=== PATIENT | male | born 1960 | race Two or more races ===

== ENCOUNTER 2025-05-14 09:47 | Emergency (ER) | payer MEDICAID, OTHER ==
[~2025-05-14] VITALS: Ht 167.6 cm; Wt 81.6 kg
--- NOTE | 2025-05-14 11:12 | ED.PDOC ---
Musculoskeletal HPI Comments A 59 YEAR OLD MALE PRESENTS TO THE ED WITH COMPLAINT OF CHRONIC LEFT KNEE PAIN. PATIENT STATES HE HAS HAD CHRONIC LEFT KNEE PAIN FOR THE PAST 15 YEARS WITH WORSENING PAIN OVER THE LAST FEW DAYS. PATIENT IS REQUESTING AN INJECTION TO MANAGE HIS PAIN. PATIENT DENIES FEVER, CHILLS, SHORTNESS OF BREATH, CHEST PAIN, ABDOMINAL PAIN, NAUSEA, VOMITING, HEADACHE, OR OTHER COMPLAINTS. NO OTHER SYMPTOMS OR MODIFYING FACTORS AT THIS TIME. PATIENT IS ALERT, ORIENTED X 4, AND HAS STEADY GAIT. Chief Complaint: Lower Extremity Time Seen by MD: 10:16 Reviewed Notes: Nurses Notes, Medications, Allergies Allergies: Coded Allergies: NO KNOWN ALLERGIES (Unverified , 05/14/25) Home Meds Active Scripts Prednisone (Prednisone) 20 Mg Tab, 40 MG PO DAILY, #20 TAB Prov:JAY STUBBS 05/14/25 Information Source: Patient Mode of Arrival: Ambulatory Location: Left Extremity Location: Knee Timing: Months, Other (CHRONIC) Prehospital treatment: None Severity: Moderate Able to Move Extremity: Yes Bear Weight: Fully Pain: Moderate Mechanism: No Trauma, Spontaneous Circumstances: Spontaneous Onset of Symptoms: Spontaneous Symptoms: Pain DVT Risk Factors: NONE Last Tetanus: UTD, Unknown Associated signs and symptoms: Knee pain Past Medical History PAST MEDICAL HISTORY: Arthritis Past Medical History (Other): CHRONIC LEFT KNEE PAIN Surgical History (Other): LEFT KNEE SURGERY Family History Family History: Reviewed,noncontributory to illness Social History Smoker: Non-Smoker Alcohol: Denies ETOH Use Drugs: Denies Drug Use Lives In: Home Constitutional: denies: chills, diaphoresis, fatigue, fever, malaise, sweats, weakness, others EENTM: denies: blurred vision, double vision, ear bleeding, ear discharge, ear drainage, ear pain, ear ringing, eye pain, eye redness, hearing loss, mouth pain, mouth swelling, nasal discharge, nose bleeding, nose congestion, nose pain, photophobia, tearing, throat pain, throat swelling, voice changes, others Respiratory: denies: cough, hemoptysis, orthopnea, SOB at rest, shortness of breath, SOB with excertion, stridor, wheezing, others Cardiovascular: denies: chest pain, dizzy spells, diaphoresis, Dyspnea on exertion, edema, irregular heart beat, left arm pain, lightheadedness, palpitations, PND, syncope, others Gastrointestinal: denies: abdomen distended, abdominal pain, blood streaked bowels, constipated, diarrhea, dysphagia, difficulty swallowing, hematemesis, melena, nausea, poor appetite, poor fluid intake, rectal bleeding, rectal pain, vomiting, others Genitourinary: denies: burning, dysuria, flank pain, frequency, hematuria, incontinence, penile discharge, penile sore, pain, testicle pain, testicle swelling, urgency, others Neurological: denies: dizziness, fainting, headache, left sided numbness, left sided weakness, numbness, paresthesia, pre-existing deficit, right sided numbness, right sided weakness, seizure, speech problems, tingling, tremors, weakness, others Musculoskeletal: reports: joint pain, joint swelling, others (LEFT KNEE PAIN); denies: back pain, gout, muscle pain, muscle stiffness, neck pain Integumetry: denies: bruises, change in color, change in hair/nails, dryness, laceration, lesions, lumps, rash, wounds, others Allergic/Immunocompromised: denies: Difficulty Healing, Frequent Infections, Hives, Itching, others Hematologic/Lymphatic: denies: anemia, blood clots, easy bleeding, easy bruising, swollen glands, others Endocrine: denies: excessive hunger, excessive sweating, excessive thirst, excessive urination, flushing, intolerance to cold, intolerance to heat, unexplained weight gain, unexplained weight loss, others Psychiatric: denies: anxiety, bipolar disorder, depression, hopeless, panic disorder, schizophrenia, sleepless, suicidal, others All Other Systems: Reviewed and Negative Physical Exam General Appearance: No Apparent Distress, Normal HEENT: Normal ENT Inspection, PERRL/EOMI, Pharynx Normal, TMs Normal Neck: Full Range of Motion, Non-Tender, Normal, Normal Inspection Respiratory: Chest Non-Tender, Lungs Clear, No Accessory Muscle Use, No Respiratory Distress, Normal Breath Sounds Cardiovascular: No Edema, No JVD, No Murmur, No Gallop, Normal Peripheral Pulses, Regular Rate/Rhythm Breast Exam: Deferred Gastrointestinal: No Organomegaly, Non Tender, No Pulsatile Mass, Normal Bowel Sounds, Soft Genitalia: Deferred Pelvic: Deferred Rectal: Deferred Extremities: No calf tenderness, Normal capillary refill, Normal inspection, Normal range of motion, No pedal edema, Tender (ON LEFT KNEE, NO BONY TENDERNESS, SWELLING AND DEFORMITY. ) Musculoskeletal : Apperance: Normal Neurologic: Alert, print color operator II-XII nml as Tested, No Motor Deficits, Normal Affect, Normal Mood, No Sensory Deficits Cerebellar Function: Normal Reflexes: Normal Skin: Dry, Normal Color, Warm Peripheral Pulses: 2+ carotid (R), 2+ carotid (L), 2+ dorsalis pedis (R), 2+ dorsalis pedis (L) Lymphatic: No Adenopathy Was a procedure done? Was a procedure done?: No Differential Diagnosis EXT Differential Diagnosis: Sprain, DJD, Strain, Arthritis, Bursitis X-Ray, Labs, Meds, VS Vital Signs Date Time Temp Pulse Resp B/P (MAP) Pulse Ox O2 Delivery O2 Flow Rate FiO2 05/14/25 11:34 74 16 95 Room Air 05/14/25 11:34 97.6 74 16 128/86 (100) 95 97.6 05/14/25 09:49 98.2 94 18 127/82 97 98.2 Current Medications Medications (Trade) Dose Ordered Sig/Isamar Route Start Time Stop Time Status Last Admin Ketorolac Tromethamine (Toradol Injection) 60 mg ONCE ONCE IM 05/14/25 11:15 05/14/25 11:16 DC 05/14/25 11:29 CLINICAL INDICATION: PAIN, NO INJURY TECHNIQUE: 3 radiographic views of the left knee were obtained. Comparison: None FINDINGS/IMPRESSION: There is no evidence of acute fracture or dislocation. Severe tricompartmental knee joint osteoarthrosis. Postsurgical changes are visualized in the proximal tibia. The alignment is anatomical. There is no radiopaque foreign body. ATED BY: TYLER LAWS MD DICTATED DATE/TIME: 05/14/251128 SIGNED BY: TYLER LAWS MD SIGNED DATE/TIME: 05/14/251128 CC: X-Ray, Labs, Meds, VS Comment EXTERNAL MEDICAL RECORDS REVIEWED: [NONE] INDEPENDENT HISTORIANS: [NONE] SOCIAL DETERMINANTS OF HEALTH: [NONE] LABS ORDERED: NONE REVIEWED AND INTERPRETED RESULTS: NONE IMAGING ORDERED: XR KNEE LT TREATMENTS ORDERED: TORADOL 60 MG IM PROCEDURES PERFORMED: NONE CRITICAL CARE TIME: NONE I HAVE DISCUSSED THE PATIENT WITH THE ATTENDING PHYSICIAN AND HE AGREES WITH THE PATIENT'S PLAN OF CARE AND DISPOSITION. BASED ON HISTORY OF PRESENT ILLNESS, AND PHYSICAL EXAM, PATIENT WILL BE DISCHARGED HOME. DISCUSSED PLAN FOR DISCHARGE HOME WITH RX [PREDNISONE]. MEDICATION WARNINGS GIVEN. SHARED DECISION MAKING: PATIENT INSTRUCTED TO FOLLOW UP WITH PRIMARY CARE PROVIDER IN 1-2 DAYS FOR RE-EVALUATION OF SYMPTOMS. PATIENT VERBALIZES UNDERSTANDING TO RETURN TO ED FOR NEW OR WORSENING SYMPTOMS OR IF FOLLOW UP WITH PCP CANNOT BE OBTAINED. PATIENT FEELS COMFORTABLE GOING HOME AT THIS TIME. ALL QUESTIONS ADDRESSED AT TIME OF DISCHARGE. Images Reviewed?: Images reviewed and evaluated by me Time of 1ST Reevaluation: 12:00 Reevaluation 1ST: Improved Patient Education/Counseling: Diagnosis, Treatment, Need For Follow Up Family Education/Counseling: Diagnosis, Treatment, Need For Follow Up Medical Screening: No EMC Exist At This Time Departure 1 Departure Time of Disposition: 12:00 Impression: Primary Impression: Degenerative joint disease of left knee Qualified Codes: M17.12 - Unilateral primary osteoarthritis, left knee Disposition: 01 HOME / SELF CARE / HOMELESS Condition: Stable Additional Instructions: FOLLOW-UP WITH PCP IN 1 TO 2 DAYS. TAKE MEDICATIONS PRESCRIBED. RETURN TO ED FOR ANY NEW OR WORSENING SYMPTOMS. e-Prescriptions Prednisone (Prednisone) 20 Mg Tab 40 MG PO DAILY, #20 TAB Prov: JAY STUBBS 05/14/25 Discharged With: Self Critical Care Note Critical Care Time?: No Stability Stability form required: No I personally scribed for JAY STUBBS ([email or web address]) on 05/14/25 at 11:12. Electronically submitted by [employer] ([email or web address]). I personally scribed for JAY STUBBS ([email or web address]) on 05/14/25 at 11:32. Electronically submitted by [employer] ([email or web address]). I personally scribed for JAY STUBBS ([email or web address]) on 05/14/25 at 11:36. Electronically submitted by [employer] ([email or web address]). JAY STUBBS May 14, 2025 11:12
[2025-05-14] MEDS: KETOROLAC TROMETH 60MG/2ML VIAL IM ONE (11:29)
--- NOTE | 2025-05-14 11:32 | DVH ---
CLINICAL INDICATION: PAIN, NO INJURY TECHNIQUE: 3 radiographic views of the left knee were obtained. Comparison: None FINDINGS/IMPRESSION: There is no evidence of acute fracture or dislocation. Severe tricompartmental knee joint osteoarthrosis. Postsurgical changes are visualized in the proxima l tibia. The alignment is anatomical. There is no radiopaque foreign body.
[2025-05-14 11:34] VITALS: BP 128/86; PULSE 74; RESP 16; TEMP 97.6; O2SAT 95
[2025-05-14] MEDS ORDERED: PRED20TA2 PO (11:37)
== END 2025-05-14 11:49 | disposition home or self-care (01) ==
LOC: ER 09:47
DX: M17.12 Unilateral primary osteoarthritis, left knee (principal); Z79.899 Other long term (current) drug therapy
CPT/HCPCS: 73562; 96372; 99283; J1885

== ENCOUNTER 2025-08-10 19:57 | Inpatient (IN) | payer MEDICARE, MEDICAID ==
[~2025-08-10] VITALS: Ht 167.6 cm; Wt 91.0 kg
[~2025-08-10 19:57] MED LIST: PRED20TA2 PO
--- NOTE | 2025-08-10 20:44 | ED.PDOC ---
History of Present Illness HPI Comments 64-year-old, obese male presents with chief complaint of shortness of breath, productive cough, and sharp, midsternal chest pain. Significant history for hypertension, hepatitis series-resolved, and tobacco cigarette and marijuana use. Patient endorses four day history of symptoms, with no prior history of in the past. Pain radiates to his left arm. Breathing difficulties exacerbated whenever sleeping. He denies any fever, chills, leg swelling, or further acute symptoms. No endorsement of any recent sick contacts, travel, injuries, substance use, or further pertinent events or history. Chief Complaint: Shortness of Breath Time Seen by MD: 20:20 Reviewed Notes: Nurses Notes, Medications, Allergies Allergies: Coded Allergies: NO KNOWN ALLERGIES (Unverified , 05/14/25) Home Meds Active Scripts Prednisone (Prednisone) 20 Mg Tab, 40 MG PO DAILY, #20 TAB Prov:JAY STUBBS 05/14/25 Information Source: Patient Mode of Arrival: Ambulatory Past Medical History PAST MEDICAL HISTORY: Arthritis, HTN, Liver ([id number]) Surgical History (Other): Left knee surgery Family History Family History: No family hx of Cancer, No family hx of Heart sadie, No family hx of HTN, No family hx ofKidney sadie, No family hx of Liver sadie, No family hx of Lung sadie, No family hx of Stroke, Family hx of DM Social History Smoker: Cigarettes Alcohol: Occasionally Drugs: Marijuana Lives In: Home Constitutional: denies: chills, diaphoresis, fatigue, fever, malaise, sweats, weakness, others EENTM: denies: blurred vision, double vision, ear bleeding, ear discharge, ear drainage, ear pain, ear ringing, eye pain, eye redness, hearing loss, mouth pain, mouth swelling, nasal discharge, nose bleeding, nose congestion, nose pain, photophobia, tearing, throat pain, throat swelling, voice changes, others Respiratory: reports: cough, orthopnea, shortness of breath; denies: hemo ptysis, SOB at rest, SOB with excertion, stridor, wheezing, others Cardiovascular: reports: chest pain, left arm pain; denies: dizzy spells, diaphoresis, Dyspnea on exertion, edema, irregular heart beat, lightheadedness, palpitations, PND, syncope, others Gastrointestinal: denies: abdomen distended, abdominal pain, blood streaked bowels, constipated, diarrhea, dysphagia, difficulty swallowing, hematemesis, melena, nausea, poor appetite, poor fluid intake, rectal bleeding, rectal pain, vomiting, others Genitourinary: denies: burning, dysuria, flank pain, frequency, hematuria, incontinence, penile discharge, penile sore, pain, testicle pain, testicle swe lling, urgency, others Neurological: denies: dizziness, fainting, headache, left sided numbness, left sided weakness, numbness, paresthesia, pre-existing deficit, right sided numbness, right sided weakness, seizure, speech problems, tingling, tremors, weakness, others Musculoskeletal: denies: back pain, gout, joint pain, joint swelling, muscle pain, muscle stiffness, neck pain, others Integumetry: denies: bruises, change in color, change in hair/nails, dryness, laceration, lesions, lumps, rash, wounds, others Allergic/Immunocompromised: denies: Difficulty Healing, Frequent Infections, Hives, Itching, others Hematologic/Lymphatic: denies: anemia, blood clots, easy bleeding, easy bruising, swollen glands, others Endocrine: denies: excessive hunger, excessive sweating, excessive thirst, excessive urination, flushing, intolerance to cold, intolerance to heat, unexplained weight gain, unexplained weight loss, others Psychiatric: denies: anxiety, bipolar disorder, depression, hopeless, panic disorder, schizophrenia, sleepless, suicidal, others All Other Systems: Reviewed and Negative Physical Exam General Appearance: Moderate Distress HEENT: Normal ENT Inspection, Pharynx Normal, TMs Normal Neck: Full Range of Motion, Non-Tender, Normal, Normal Inspection Respiratory: Chest Non-Tender, Decreased Breath Sounds, No Accessory Muscle Use, Rales, Respiratory Distress Cardiovascular: No Edema, No JVD, No Murmur, No Gallop, Normal Peripheral Pulses, Regular Rate/Rhythm Breast Exam: Deferred Gastrointestinal: No Organomegaly, Non Tender, No Pulsatile Mass, Normal Bowel Sounds, Soft Genitalia: Deferred Pelvic: Deferred Rectal: Deferred Extremities: No calf tenderness, Normal capillary refill, Normal inspection, Normal range of motion, Non-tender, No pedal edema Musculoskeletal : Apperance: Normal Neurologic: Alert, 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 Was a procedure done?: No EKG EKG : Pulse Rate (adult): 88 [place]: RAD Cardiac Rhythm: NSR Block: None Hypertrophy: None ST: Normal Differential Dx Considerations may include: [place], PE, ACS, CAD, URI, PNA, viral, angina, anxiety, among others X-Ray, Labs, Meds, VS Vital Signs Date Time Temp Pulse Resp B/P (MAP) Pulse Ox O2 Delivery O2 Flow Rate FiO2 08/10/25 22:09 18 96 Room Air* 0 21 08/10/25 22:08 94 18 125/80 (95) 96 08/10/25 22:07 125/80 08/10/25 20:44 88 08/10/25 20:21 88 08/10/25 20:01 98.6 91 20 104/67 93 98.6 Lab Test 08/10/25 21:37 08/10/25 21:30 08/10/25 20:40 Range/Units Troponin I High Sensitivity Pending < 3 L </=54 ng/L Urine Color Pending Urine Clarity Pending Urine pH Pending Urine Specific [place] Pending Urine Protein Pending Urine Ketones Pending Urine Blood Pending Urine Nitrite Pending Urine Bilirubin Pending Urine Urobilinogen Pending Urine Leukocyte Esterase Pending Urine RBC Pending Urine Microscopic WBC Pending Urine Squamous Epithelial Cells Pending Urine Bacteria Pending Urine Glucose Pending Urine Opiates Screen Pending Urine Fentanyl Screen Pending Urine Barbiturates Screen Pending Urine Phencyclidine Screen Pending Urine Amphetamines Screen Pending Urine Benzodiazepines Screen Pending Urine Cocaine Screen Pending Urine Cannabinoids Screen Pending White Blood Count 7.3 4.4-10.8 10^3/uL Red Blood Count 4.99 4.5-5.90 10^6/uL Hemoglobin 16.4 13.5-17.5 g/dL Hematocrit 46.4 41.0-53.0 % Mean Corpuscular Volume 93.0 80.0-100.0 fL Mean Corpuscular Hemoglobin 33.0 H 28.0-32.0 pg Mean Corpuscular Hemoglobin Concent 35.4 32.0-36.0 g/dL Red Cell Distribution Width 13.3 11.8-14.3 % Platelet Count 197 140-450 10^3/uL Mean Platelet Volume 9.1 6.9-10.8 fL Neutrophils (%) (Auto) 51.5 37.0-80.0 % Lymphocytes (%) (Auto) 32.9 10.0-50.0 % Monocytes (%) (Auto) 11.7 0.0-12.0 % Eosinophils (%) (Auto) 2.9 0.0-7.0 % Basophils (%) (Auto) 1.0 0.0-2.0 % Neutrophils # (Auto) 3.8 1.6-8.6 10 ^3/uL Lymphocytes # (Auto) 2.4 0.4-5.4 10 ^3/uL Monocytes # (Auto) 0.9 0-1.3 10 ^3/uL Eosinophils # (Auto) 0.2 0-0.8 10 ^3/uL Basophils # (Auto) 0.1 0-0.2 10 ^3/uL Nucleated Red Blood Cells 0.1 % D-Dimer, Quantitative 0.23 0.0-0.49 mg/L FEU Sodium Level 142 136-145 mmol/L Potassium Level 4.0 3.5-5.1 mmol/L Chloride Level 105 98-107 mmol/L Carbon Dioxide Level 25 20-31 mmol/L Anion Gap 12 5-15 Blood Urea Nitrogen 16 9-23 mg/dL Creatinine 1.23 0.700-1.30 mg/dL Glomerular Filtration Rate Calc 65 >90 mL/min BUN/Creatinine Ratio 13.0 10.0-20.0 Serum Glucose 92 74-106 mg/dL Calcium Level 9.3 8.7-10.4 mg/dL B-Type Natriuretic Peptide 31.25 0-100 pg/mL Current Medications Medications (Trade) Dose Ordered Sig/Isamar Route Start Time Stop Time Status Last Admin Furosemide (Lasix Injection) 40 mg ONCE ONCE IV 08/10/25 21:45 08/10/25 21:46 DC 08/10/25 22:07 PROCEDURE(s): CXR2 - CHEST TWO VIEWS ROUTINE FINDINGS: Cardiac silhouette is within normal limits. Mild prominence of the pulmonary vasculature. No dense focal airspace disease. No significant pleural effusions or pneumothorax. Bones and soft tissues demonstrate no significant abnormality IMPRESSION: Suspect mild pulmonary venous congestion. The CBC is within normal limits. The patient was given Lasix 40 mg IV push The BNP is 31.25 The D-dimer is 0.23 which is within normal limits The chemistry panel is within normal limits At this time the urine tox in the urine test is pending The patient is being admitted at this time Images Reviewed?: Images reviewed and evaluated by me Time of 1ST Reevaluation: 20:50 Reevaluation 1ST: Unchanged Patient Education/Counseling: Diagnosis, Treatment, Prognosis Family Education/Counseling: No Family Present SEPSIS Sepsis Screen Date sepsis recognized/suspect: Aug 10, 2025 Time Sepsis recognized/suspect: 2004 Recent Procedure: No On Antibiotic Therapy: No Respiratory Rate >20: No Heart Rate >90: No Temp<36 C (96.8 F) or >38.3 C: No SBP <90 or MAP <65 mmHG: No New Acute Mental Status Change: No Is the patient on CPAP, BIPAP,: No Physician Orders Electrocardigram (08/10/25 20:07) Urinalysis (08/10/25 20:27) Heplock Iv (08/10/25 20:27) Pulse Oximetry (08/10/25 20:27) Community Outreach Director (08/10/25 20:27) Blood Pressure (08/10/25 20:27) Chest Two Views Routine (08/10/25 20:27) Covid19 Antigen Sirisha (08/10/25 ) Drug Screen (08/10/25 20:27) Troponin-I Hs (08/10/25 21:27) Troponin-I Hs (08/10/25 23:27) Vital Signs Date Time Temp Pulse Resp B/P (MAP) Pulse Ox O2 Delivery O2 Flow Rate FiO2 08/10/25 22:09 18 96 Room Air* 0 21 08/10/25 22:08 94 18 125/80 (95) 96 08/10/25 22:07 125/80 08/10/25 20:44 88 08/10/25 20:21 88 08/10/25 20:01 98.6 91 20 104/67 93 98.6 Laboratory Tests Test 08/10/25 20:40 White Blood Count 7.3 10^3/uL (4.4-10.8) Medications Medications Dose Ordered Sig/Isamar Route Start Time Stop Time Status Last Admin Dose Admin Furosemide 40 mg ONCE ONCE IV 08/10/25 21:45 08/10/25 21:46 DC 08/10/25 22:07 Departure 1 Departure Time of Disposition: 21:35 Impression: Primary Impression: Pulmonary vascular congestion Additional Impression: Acute on chronic diastolic heart failure Disposition: ADMITTED INPATIENT Admit to: Tele Condition: Fair Critical Care Note Critical Care Time?: Yes (45 min-critical care time only) Stability Stability form required: Yes Unstable for transfer: Telemetry monitoring (Telemetry monitoring required), ED Physician Assesment (Clinical assesment) Heart Score Heart Score: Heart Score Response (Comments) Value History Moderate Suspicious 1 EKG Normal 0 Age >65 2 Risk Factors >3 or Hx ASHD 2 Troponin Normal limit 0 Total 5 I personally scribed for WHITNEY MATHEW MD ([email or web address]) on 08/10/25 at 20:44. Electronically submitted by Jono Kirby ([email or web address]). I personally scribed for WHITNEY MATHEW MD ([email or web address]) on 08/10/25 at 22:02. Electronically submitted by Jono Kirby ([email or web address]). WHITNEY MATHEW MD Aug 10, 2025 20:44
[2025-08-10 21:24] LABS: Hematocrit 46.4 % (41.0-53.0); Hemoglobin 16.4 g/dL (13.5-17.5); Mean Corpuscular Hemoglobin 33.0 pg (28.0-32.0); Mean Corpuscular Volume 93.0 fL (80.0-100.0); Nucleated Red Blood Cells % 0.1 %
--- NOTE | 2025-08-10 21:27 | DVH ---
CHEST RADIOGRAPH Indication: sob Technique: Frontal and lateral view of the chest was obtained Comparison: None FINDINGS: Cardiac silhouette is within normal limits. Mild prominence of the pulmonary vasculature. No dense focal airspace disease. No significant pleural effusions or pneumothorax. Bones and soft tissues demonstrate no significant abnormality IMPRESSION: Suspect mild pulmonary venous congestion.
[2025-08-10 21:28] LABS: Chloride 105 mmol/L (98-107); Potassium 4.0 mmol/L (3.5-5.1); Sodium 142 mmol/L (136-145)
[2025-08-10 21:29] LABS: Anion Gap 12 (5-15); Calcium 9.3 mg/dL (8.7-10.4); Carbon Dioxide 25 mmol/L (20-31)
[2025-08-10 21:34] LABS: BUN/Creatinine Ratio 13.0 (10.0-20.0); Blood Urea Nitrogen 16 mg/dL (9-23); Glucose 92 mg/dL (74-106)
[2025-08-10] MEDS: FUROSEMIDE 40 MG/4 ML VIAL IV ONE (22:07)
[2025-08-10 22:09] LABS: Urine Protein, UAD Negative (Negative)
[2025-08-10 22:21] LABS: Cannabinoid Screen, Urine Pos (NEGATIVE)
[2025-08-10 22:34] LABS: Amphetamine Screen, Urine Neg (NEGATIVE); Barbiturate Scree,Urine Neg (NEGATIVE); Benzodiazephine Screen, Urine Neg (NEGATIVE); Cocaine Screen, Urine Neg (NEGATIVE); Opiate Scree,Urine Neg (NEGATIVE); Phencyclidine Screen, Urine Neg (NEGATIVE)
--- NOTE | 2025-08-10 22:57 | ECG ---
[facility] Test Date: 2025-08-10 Test Time: 20:21:03 Pat Name: JONG CARTAGENA Department: ED Room: 0216 Gender: M Parks Recreation Coordinator: SHAZIA : 1960 Requested By: WHITNEY MATHEW Order Number: [id number] Reading MD: Kalyan Patel Measurements Intervals [place] Rate: 88 P: 88 VT: 159 QRS: 102 QRSD: 98 T: 67 QT: 367 QTc: 444 Interpretive Statements Sinus rhythm Right axis deviation Low voltage, precordial leads Electronically Signed On 08-12-2025 17:46:35 PST by Kalyan Patel Please click the below link to view image of tracing.
[2025-08-11] VITALS (12 sets, daily range): BP systolic 103–133; BP diastolic 64–83; PULSE 71–92; RESP 14–20; TEMP 97.5–98.4; O2SAT 91–97
--- NOTE | 2025-08-11 00:43 | DVHHP2 ---
History of Present Illness Reason for Visit: Shortness for breath History of Present Illness 64-year-old male presents for evaluation of shortness for breath. Patient endorses a three day history of worsening shortness for breath with associated cough with yellow phlegm. Reports also intermittent chills. Denies chest pain or lower extremity swelling. No other acute complaints reported. Past Medical History Hypertension, arthritis Past Surgical History Left knee surgery Family History Noncontributory Smoke: <1 pack per day ALCOHOL: occassional Drugs: Marijuana Lives: with Family Review of Systems Review of Systems Review of systems are currently negative otherwise addressed in HPI. Allergies: Coded Allergies: NO KNOWN ALLERGIES (Unverified , 05/14/25) Exam Vital Signs Vital Signs Date Time Temp Pulse Resp B/P (MAP) Pulse Ox O2 Delivery O2 Flow Rate FiO2 08/10/25 22:09 18 96 Room Air* 0 21 08/10/25 22:08 94 125/80 (95) 08/10/25 20:01 98.6 98.6 Exam Gen: 64-year-old male in mild distress Skin: Warm, dry, normal color and texture, no rash. HEENT: Normocephalic atraumatic, mucous membranes moist and pink. Neck: Cervical and supraclavicular nodes normal without enlargement, trachea is midline, thyroid gland is normal without masses. Pulmonary: Diminished breath sounds bilaterally Cardiac: Regular rate and rhythm. No murmur Abdomen: Soft, nontender, nondistended, bowel sounds present all 4 quadrants, no guarding, no rigidity, no organomegaly. Extremities: No cyanosis, clubbing, no edema Neuro: Cranial nerves II through XII grossly intact, normal affect and speech, no focal motor deficits. Labs/Xrays ORDERING PHYSICIAN: WHITNEY MATHEW MD PROCEDURE(s): CXR2 - CHEST TWO VIEWS ROUTINE REASON: sob ORDER NUMBER(s): [id number], ACCESSION NUMBER(s): [id number] CHEST RADIOGRAPH Indication: sob Technique: Frontal and lateral view of the chest was obtained Comparison: None FINDINGS: Cardiac silhouette is within normal limits. Mild prominence of the pulmonary vasculature. No dense focal airspace disease. No significant pleural effusions or pneumothorax. Bones and soft tissues demonstrate no significant abnormality IMPRESSION: Suspect mild pulmonary venous congestion. Labs Test 08/11/25 00:00 08/10/25 21:37 08/10/25 21:30 08/10/25 20:40 Range/Units Troponin I High Sensitivity < 3 L </=54 ng/L Urine Color Light-yellow Yellow Urine Clarity Clear Clear Urine pH 5.5 5.0-9.0 Urine Specific [place] 1.011 1.001-1.035 Urine Protein Negative Negative Urine Ketones Negative Negative Urine Blood Negative Negative /uL Urine Nitrite Negative Negative Urine Bilirubin Negative Negative Urine Urobilinogen Normal Negative mg/dL Urine Leukocyte Esterase Negative Negative /uL Urine RBC None seen 0 - 3 /hpf Urine Microscopic WBC < 1 0-3 /HPF Urine Squamous Epithelial Cells None seen <5 /hpf Urine Bacteria None seen None Seen /hpf Urine Glucose Normal Normal mg/dL Urine Opiates Screen Neg NEGATIVE Urine Fentanyl Screen Neg NEGATIVE Urine Barbiturates Screen Neg NEGATIVE Urine Phencyclidine Screen Neg NEGATIVE Urine Amphetamines Screen Neg NEGATIVE Urine Benzodiazepines Screen Neg NEGATIVE Urine Cocaine Screen Neg NEGATIVE Urine Cannabinoids Screen Pos NEGATIVE White Blood Count 7.3 4.4-10.8 10^3/uL Red Blood Count 4.99 4.5-5.90 10^6/uL Hemoglobin 16.4 13.5-17.5 g/dL Hematocrit 46.4 41.0-53.0 % Mean Corpuscular Volume 93.0 80.0-100.0 fL Mean Corpuscular Hemoglobin 33.0 H 28.0-32.0 pg Mean Corpuscular Hemoglobin Concent 35.4 32.0-36.0 g/dL Red Cell Distribution Width 13.3 11.8-14.3 % Platelet Count 197 140-450 10^3/uL Mean Platelet Volume 9.1 6.9-10.8 fL Neutrophils (%) (Auto) 51.5 37.0-80.0 % Lymphocytes (%) (Auto) 32.9 10.0-50.0 % Monocytes (%) (Auto) 11.7 0.0-12.0 % Eosinophils (%) (Auto) 2.9 0.0-7.0 % Basophils (%) (Auto) 1.0 0.0-2.0 % Neutrophils # (Auto) 3.8 1.6-8.6 10 ^3/uL Lymphocytes # (Auto) 2.4 0.4-5.4 10 ^3/uL Monocytes # (Auto) 0.9 0-1.3 10 ^3/uL Eosinophils # (Auto) 0.2 0-0.8 10 ^3/uL Basophils # (Auto) 0.1 0-0.2 10 ^3/uL Nucleated Red Blood Cells 0.1 % D-Dimer, Quantitative 0.23 0.0-0.49 mg/L FEU Sodium Level 142 136-145 mmol/L Potassium Level 4.0 3.5-5.1 mmol/L Chloride Level 105 98-107 mmol/L Carbon Dioxide Level 25 20-31 mmol/L Anion Gap 12 5-15 Blood Urea Nitrogen 16 9-23 mg/dL Creatinine 1.23 0.700-1.30 mg/dL Glomerular Filtration Rate Calc 65 >90 mL/min BUN/Creatinine Ratio 13.0 10.0-20.0 Serum Glucose 92 74-106 mg/dL Calcium Level 9.3 8.7-10.4 mg/dL B-Type Natriuretic Peptide 31.25 0-100 pg/mL SEPSIS Sepsis Screen Date sepsis recognized/suspect: Aug 10, 2025 Time Sepsis recognized/suspect: 2004 Recent Procedure: No On Antibiotic Therapy: No Respiratory Rate >20: No Heart Rate >90: No Temp<36 C (96.8 F) or >38.3 C: No SBP <90 or MAP <65 mmHG: No New Acute Mental Status Change: No Is the patient on CPAP, BIPAP,: No Physician Orders Heplock Iv (08/10/25 20:27) Pulse Oximetry (08/10/25 20:27) Staff Engineer (08/10/25 20:27) Blood Pressure (08/10/25 20:27) Chest Two Views Routine (08/10/25 20:27) Covid19 Antigen Sirisha (08/10/25 ) Admit (08/10/25 23:52) Vital Signs Date Time Temp Pulse Resp B/P (MAP) Pulse Ox O2 Delivery O2 Flow Rate FiO2 08/10/25 22:09 18 96 Room Air* 0 21 08/10/25 22:08 94 18 125/80 (95) 96 08/10/25 22:07 125/80 08/10/25 20:44 88 08/10/25 20:21 88 08/10/25 20:01 98.6 91 20 104/67 93 98.6 Laboratory Tests Test 08/10/25 20:40 White Blood Count 7.3 10^3/uL (4.4-10.8) Medications Medications Dose Ordered Sig/Isamar Route Start Time Stop Time Status Last Admin Dose Admin Furosemide 40 mg ONCE ONCE IV 08/10/25 21:45 08/10/25 21:46 DC 08/10/25 22:07 40 MG Assessment/Plan Assessment/Plan Assessment Acute pneumonitis Acute respiratory distress Plan Admit the patient to [facility] to the hospitalist [facility] Azithromycin Continue treatment per orders. Plan discussed with: Patient My Orders Orders - MANISH ORO Procedure Category Date Status Time Admit ADMIT 08/10/25 Transmitted 23:52 Date of Service: Aug 10, 2025 Billing Provider: MANISH ORO Common Visit Codes: [id number] INP/OBS CARE (MOD) MANISH ORO Aug 11, 2025 00:43
[2025-08-11] MEDS ORDERED: ALBUTEROL SULF 2.5 MG/0.5ML(0.5%) NEB SOLN NEB PRN (00:45)
[2025-08-11] MEDS ORDERED: ACETAMINOPHEN 325 MG TAB PO PRN (00:45)
[2025-08-11] MEDS ORDERED: ONDANSETRON HCL 4 MG/2 ML VIAL IV PRN (00:45)
[2025-08-11 00:49] LABS: COVID19 ANTIGEN SOFIA FIA NEGATIVE (NEGATIVE)
[2025-08-11] MEDS: AZITHROMYCIN 500MG/250ML 250 ML IV ONE (02:17)
[2025-08-11] MEDS: guaiFENesin-DM 100/10mg/5ml SYR PO PRN (02:17)
--- NOTE | 2025-08-11 15:15 | DVHPN2 ---
Reviewed: Care Plan, H&P, Labs, Medications, Previous Orders, Radiology Changes from previous H/P or p: No Changes Objective Vitals Vital Signs Date Time Temp Pulse Resp B/P (MAP) Pulse Ox O2 Delivery O2 Flow Rate FiO2 08/11/25 12:34 97.5 71 19 124/82 (96) 95 97.5 08/11/25 07:28 Room Air* 0 21 Intake/Output Intake and Output 08/11/25 07:00 Intake Total 430 ml Balance 430 ml Intake Oral 180 ml IV Total 250 ml # Voids 2 Medications Current Medications Medications Dose Ordered Sig/Isamar Route Start Time Stop Time Status Last Admin Dose Admin Azithromycin 250 ml @ 125 mls/hr DAILY IV 08/12/25 10:00 Albuterol 2.5 mg Q6HPRN PRN NEB 08/11/25 00:45 Guaifenesin/ Dextromethorphan 10 ml Q4HP PRN PO 08/11/25 00:45 08/11/25 11:53 10 ML Temazepam 15 mg QHSP PRN PO 08/11/25 00:45 Ondansetron HCl 4 mg Q4HP PRN IV 08/11/25 00:45 Acetaminophen 650 mg Q6HP PRN PO 08/11/25 00:45 Laboratory Results Laboratory Tests 08/10/25 20:40 Chemistry Test 08/10/25 20:40 Calcium Level 9.3 mg/dL (8.7-10.4) Coagulation Test 08/10/25 20:40 D-Dimer, Quantitative 0.23 mg/L FEU (0.0-0.49) Cardiac Markers Test 08/10/25 20:40 B-Type Natriuretic Peptide 31.25 pg/mL (0-100) Urinalysis Test 08/10/25 21:30 Urine Color Light-yellow (Yellow) Urine Clarity Clear (Clear) Urine pH 5.5 (5.0-9.0) Urine Specific [place] 1.011 (1.001-1.035) Urine Protein Negative (Negative) Urine Ketones Negative (Negative) Urine Blood Negative /uL (Negative) Urine Nitrite Negative (Negative) Urine Bilirubin Negative (Negative) Urine Urobilinogen Normal mg/dL (Negative) Urine Leukocyte Esterase Negative /uL (Negative) Urine RBC None seen /hpf (0 - 3) Urine Microscopic WBC < 1 /HPF (0-3) Urine Squamous Epithelial Cells None seen /hpf (<5) Urine Bacteria None seen /hpf (None Seen) Urine Glucose Normal mg/dL (Normal) Labs and/or images reviewed: Labs reviewed by me, Image(s) reviewed by me Assessment/Plan Assessment/Plan Acute hypoxic respiratory failure: Oxygen by nasal cannula Acute community-acquired pneumonia Gram-positive versus Gram-negative: Rocephin azithromycin Hypertension Arthritis Chronic current smoking: Nicotine patch and counseled 20 minutes Patient is DNR (patient says in case). No reason to be on DNR Plan discussed with: Patient My Orders Orders - HAYDEN CHEUNG MD Procedure Category Date Status Time Ceftriaxone Ivpb PHA 08/12/25 Transmitted Rocephin 09:00 Ceftriaxone Ivpb PHA 08/11/25 Transmitted Rocephin 15:15 Date of Service: Aug 11, 2025 Billing Provider: HAYDEN CHEUNG MD Common Visit Codes: [id number] INP/OBS CARE(HIGH) Secondary Visit Codes: [id number] CHNG SMOKING >10MIN HAYDEN CHEUNG MD Aug 11, 2025 15:15
[2025-08-11] MEDS: NICOTINE 21MG/24 HR TOPICAL PATCH TD ONE (17:12)
--- NOTE | 2025-08-11 17:28 | MEDREC ---
[facility] Intervention Section I [facility] Intervention: IV to PO conversion (Suggest changing Azithromycin IV to PO as pt is afebrile and tolerating PO meds and enteral meals) ELIANA BLANCO PHARMACIST Aug 11, 2025 17:28
[2025-08-11] MEDS: TEMAZEPAM 15 MG CAP PO PRN (21:07)
[2025-08-12] VITALS (7 sets, daily range): BP systolic 113–138; BP diastolic 76–86; PULSE 72–86; RESP 14–20; TEMP 36.5; O2SAT 93–98
--- NOTE | 2025-08-12 08:29 | DVHPN2 ---
Reviewed: Care Plan, H&P, Labs, Medications, Previous Orders, Radiology Changes from previous H/P or p: No Changes Objective Vitals Vital Signs Date Time Temp Pulse Resp B/P (MAP) Pulse Ox O2 Delivery O2 Flow Rate FiO2 08/12/25 05:00 98.0 78 16 113/76 (88) 93 98.0 08/11/25 20:00 Room Air* 0 21 Intake/Output Intake and Output 08/12/25 07:00 Intake Total 1760 ml Balance 1760 ml Intake Oral 1760 ml # Voids 5 # Bowel Movements 1 Medications Current Medications Medications Dose Ordered Sig/Isamar Route Start Time Stop Time Status Last Admin Dose Admin Azithromycin 250 ml @ 125 mls/hr DAILY IV 08/12/25 10:00 Albuterol 2.5 mg Q6HPRN PRN NEB 08/11/25 00:45 Guaifenesin/ Dextromethorphan 10 ml Q4HP PRN PO 08/11/25 00:45 08/11/25 21:07 10 ML Temazepam 15 mg QHSP PRN PO 08/11/25 00:45 08/11/25 21:07 15 MG Ondansetron HCl 4 mg Q4HP PRN IV 08/11/25 00:45 Acetaminophen 650 mg Q6HP PRN PO 08/11/25 00:45 Ceftriaxone Sodium 50 ml @ 100 mls/hr DAILY@09 IV 08/12/25 09:00 Nicotine 1 patch DAILY TD 08/12/25 10:00 Laboratory Results Laboratory Tests 08/10/25 20:40 Urinalysis Test 08/10/25 21:30 Urine Color Light-yellow (Yellow) Urine Clarity Clear (Clear) Urine pH 5.5 (5.0-9.0) Urine Specific [place] 1.011 (1.001-1.035) Urine Protein Negative (Negative) Urine Ketones Negative (Negative) Urine Blood Negative /uL (Negative) Urine Nitrite Negative (Negative) Urine Bilirubin Negative (Negative) Urine Urobilinogen Normal mg/dL (Negative) Urine Leukocyte Esterase Negative /uL (Negative) Urine RBC None seen /hpf (0 - 3) Urine Microscopic WBC < 1 /HPF (0-3) Urine Squamous Epithelial Cells None seen /hpf (<5) Urine Bacteria None seen /hpf (None Seen) Urine Glucose Normal mg/dL (Normal) Labs and/or images reviewed: Labs reviewed by me, Image(s) reviewed by me Assessment/Plan Assessment/Plan Acute hypoxic respiratory failure: Oxygen by nasal cannula Acute community-acquired pneumonia Gram-positive versus Gram-negative: Rocephin azithromycin Hypertension Arthritis Chronic current smoking: Nicotine patch and counseled 20 minutes Patient is DNR (patient says in case). No reason to be on DNR Patient feels better and wants to go home Plan discussed with: Patient My Orders Orders - HAYDEN CHEUNG MD Procedure Category Date Status Time Ceftriaxone 1gm/50ml PHA 08/12/25 In Process (Rocephin) 09:00 Code Status CODE 08/11/25 Transmitted 15:14 Nicotine 21mg/24hr PHA 08/12/25 In Process (Nicoderm 21mg/24hr) 10:00 Date of Service: Aug 12, 2025 Billing Provider: HAYDEN CHEUNG MD Common Visit Codes: [id number] INP/OBS CARE(HIGH) HAYDEN CHEUNG MD Aug 12, 2025 08:29
[2025-08-12] MEDS ORDERED: AZIT500T66 PO (08:30)
--- NOTE | 2025-08-12 08:33 | DVHDS2 ---
Discharge Summary Date of Admission Aug 10, 2025 at 23:52 Date of Discharge: Aug 12, 2025 Admitting Diagnosis Cough and shortness of breath Wounds: None Labs/Diagnostic Data: Laboratory Results Test 08/11/25 18:42 08/11/25 00:00 08/10/25 21:37 08/10/25 21:30 Influenza Type A Antigen Negative (Negative) Influenza Type B Antigen Negative (Negative) SARS-CoV-2 Antigen (Rapid) Negative (NEGATIVE) Troponin I High Sensitivity < 3 ng/L (</=54) Urine Color Light-yellow (Yellow) Urine Clarity Clear (Clear) Urine pH 5.5 (5.0-9.0) Urine Specific [place] 1.011 (1.001-1.035) Urine Protein Negative (Negative) Urine Ketones Negative (Negative) Urine Blood Negative /uL (Negative) Urine Nitrite Negative (Negative) Urine Bilirubin Negative (Negative) Urine Urobilinogen Normal mg/dL (Negative) Urine Leukocyte Esterase Negative /uL (Negative) Urine RBC None seen /hpf (0 - 3) Urine Microscopic WBC < 1 /HPF (0-3) Urine Squamous Epithelial Cells None seen /hpf (<5) Urine Bacteria None seen /hpf (None Seen) Urine Glucose Normal mg/dL (Normal) Urine Opiates Screen Neg (NEGATIVE) Urine Fentanyl Screen Neg (NEGATIVE) Urine Barbiturates Screen Neg (NEGATIVE) Urine Phencyclidine Screen Neg (NEGATIVE) Urine Amphetamines Screen Neg (NEGATIVE) Urine Benzodiazepines Screen Neg (NEGATIVE) Urine Cocaine Screen Neg (NEGATIVE) Urine Cannabinoids Screen Pos (NEGATIVE) Test 08/10/25 20:40 White Blood Count 7.3 10^3/uL (4.4-10.8) Red Blood Count 4.99 10^6/uL (4.5-5.90) Hemoglobin 16.4 g/dL (13.5-17.5) Hematocrit 46.4 % (41.0-53.0) Mean Corpuscular Volume 93.0 fL (80.0-100.0) Mean Corpuscular Hemoglobin 33.0 pg (28.0-32.0) Mean Corpuscular Hemoglobin Concent 35.4 g/dL (32.0-36.0) Red Cell Distribution Width 13.3 % (11.8-14.3) Platelet Count 197 10^3/uL (140-450) Mean Platelet Volume 9.1 fL (6.9-10.8) Neutrophils (%) (Auto) 51.5 % (37.0-80.0) Lymphocytes (%) (Auto) 32.9 % (10.0-50.0) Monocytes (%) (Auto) 11.7 % (0.0-12.0) Eosinophils (%) (Auto) 2.9 % (0.0-7.0) Basophils (%) (Auto) 1.0 % (0.0-2.0) Neutrophils # (Auto) 3.8 10 ^3/uL (1.6-8.6) Lymphocytes # (Auto) 2.4 10 ^3/uL (0.4-5.4) Monocytes # (Auto) 0.9 10 ^3/uL (0-1.3) Eosinophils # (Auto) 0.2 10 ^3/uL (0-0.8) Basophils # (Auto) 0.1 10 ^3/uL (0-0.2) Nucleated Red Blood Cells 0.1 % D-Dimer, Quantitative 0.23 mg/L FEU (0.0-0.49) Sodium Level 142 mmol/L (136-145) Potassium Level 4.0 mmol/L (3.5-5.1) Chloride Level 105 mmol/L (98-107) Carbon Dioxide Level 25 mmol/L (20-31) Anion Gap 12 (5-15) Blood Urea Nitrogen 16 mg/dL (9-23) Creatinine 1.23 mg/dL (0.700-1.30) Glomerular Filtration Rate Calc 65 mL/min (>90) BUN/Creatinine Ratio 13.0 (10.0-20.0) Serum Glucose 92 mg/dL (74-106) Calcium Level 9.3 mg/dL (8.7-10.4) B-Type Natriuretic Peptide 31.25 pg/mL (0-100) Other Laboratory Tests 08/10/25 20:40 Brief Hx & Hospital Course: 64-year-old male chronic smoker history of hypertension came in shortness of breaths mild community-acquired pneumonia treated with Rocephin azithromycin patient on room air and wants to go home discharged home on azithromycin p.o. Consults/Reason for consult None Operations or Procedures Chest x-ray Condition at Discharge: Fair Final Diagnosis/Problems List Acute hypoxic respiratory failure: Oxygen by nasal cannula Acute community-acquired pneumonia Gram-positive versus Gram-negative: Rocephin azithromycin Hypertension Arthritis Chronic current smoking: Nicotine patch and counseled 20 minutes Discharge Disposition: Home Discharge Instruct/Medications Diet: Regular Activity: Light activity Follow Up/Referral: Stop smoking cigarettes Follow up with the primary doctor Medications: Azithromycin Transmitted to [facility] pharmacy Scheduled Azithromycin (Azithromycin), 1 TAB PO DAILY Prednisone (Prednisone), 40 MG PO DAILY 35 (Time taken for discharge summary 35 mts) Discharge Statement: "Patient was advised to return to the ER or call 911 if any headaches, dizziness, shortness of breath, chest pain, abdominal pain, bleeding, fevers, or worsening of medical condition. Patient was counseled about treatment plan, medications, possible side effects, patientverbalized understanding. All questions were answered to the best of my ability. This discharge took greater then 30 minutes in planning, reviewing documentation, counseling the patient, and discussing with other team members." ASSESSMENT ASSESSMENT Hospital Course Symptoms resolved Assessment Acute hypoxic respiratory failure: Oxygen by nasal cannula Acute community-acquired pneumonia Gram-positive versus Gram-negative: Rocephin azithromycin Hypertension Arthritis Chronic current smoking: Nicotine patch and counseled 20 minutes Date of Service: Aug 12, 2025 Billing Provider: HAYDEN CHEUNG MD Common Visit Codes: [id number] DISCH DAY >30min HAYDEN CHEUNG MD Aug 12, 2025 08:33
[2025-08-12] MEDS: NICOTINE 21MG/24 HR TOPICAL PATCH TD SCH (08:48)
[2025-08-12] MEDS: AZITHROMYCIN 500MG/250ML 250 ML IV SCH (10:21)
== END 2025-08-12 10:58 | disposition home or self-care (01) | DRG 177 ==
LOC: ER 19:57 → OVERFLOW 23:52 → CENTRAL 08-11 01:51
PROVIDERS: ADMIT Family Medicine; ATTEND Family Medicine
DX: J15.69 Pneumonia due to other Gram-negative bacteria (principal); J96.01 Acute respiratory failure with hypoxia; Z66 Do not resuscitate; J15.9 Unspecified bacterial pneumonia; E66.9 Obesity, unspecified; I10 Essential (primary) hypertension; M19.09 Primary osteoarthritis, other specified site; J98.4 Other disorders of lung; F17.210 Nicotine dependence, cigarettes, uncomplicated; Z20.822 Contact with and (suspected) exposure to COVID-19; Z79.899 Other long term (current) drug therapy
CPT/HCPCS: 36415; 71046; 80048; 80307; 81001; 83880; 84484; 85025; 85379; 87426; 87804; 93005; 96374; 99291; G0378